=== PATIENT | female | born 1965 | race Hispanic/Latino ===

== ENCOUNTER → 2021-04-11 | Outpatient (CLI) | payer BC ==
[~2021-04-11] MED LIST: IOHEXOL 350 MG/ML 100ML INFUS..BTL IV ONE
== END | disposition home or self-care (01) ==
LOC: RAH 07:46
PROVIDERS: ATTEND Student in an Organized Health Care Education/Training Program
DX: L94.0 Localized scleroderma [morphea] (principal)
CPT/HCPCS: 71275; 73206 ×2; Q9967; 73202

== ENCOUNTER → 2022-11-04 | Outpatient (CLI) | payer BC ==
[~2022-11-04] MED LIST changes: +ALLO100T PO; +CHOL3000 PO; +CYAN100099 PO; +GABA300C PO; -IOHEXOL 350 MG/ML 100ML INFUS..BTL IV ONE; +LOSA25TA2 PO; +PANT40TA PO; +WARF7.5T49 PO
== END | disposition home or self-care (01) ==
LOC: SHCH 14:13
PROVIDERS: ATTEND Internal Medicine Cardiovascular Disease
DX: I87.2 Venous insufficiency (chronic) (peripheral) (principal); I82.532 Chronic embolism and thrombosis of left popliteal vein
CPT/HCPCS: 93970

== ENCOUNTER → 2023-03-18 | Outpatient (CLI) | payer BC ==
[~2023-03-18] MED LIST changes: +LOSA-417 PO; -LOSA25TA2 PO
== END | disposition home or self-care (01) ==
LOC: SHCH 07:30
PROVIDERS: ATTEND Internal Medicine Cardiovascular Disease
DX: I73.9 Peripheral vascular disease, unspecified (principal)
CPT/HCPCS: 93925

== ENCOUNTER → 2023-03-25 | Outpatient (CLI) | payer BC ==
[2023-03-25 16:37] LABS: CREATININE 0.8 mg/dL (0.5-1.5); POTASSIUM 4.3 mmol/L (3.5-5.1)
== END | disposition home or self-care (01) ==
LOC: LAB 11:50
PROVIDERS: ATTEND Student in an Organized Health Care Education/Training Program
DX: R10.84 Generalized abdominal pain (principal)
CPT/HCPCS: 36415; 80048

== ENCOUNTER → 2023-04-01 | Outpatient (CLI) | payer BC ==
[~2023-04-01] MED LIST changes: +IOHEXOL 350 MG/ML 100ML INFUS..BTL IV ONE
== END | disposition home or self-care (01) ==
LOC: RAH 08:00
PROVIDERS: ATTEND Student in an Organized Health Care Education/Training Program
DX: K57.90 Diverticulosis of intestine, part unspecified, without perforation or abscess without bleeding (principal); R10.84 Generalized abdominal pain; M47.815 Spondylosis without myelopathy or radiculopathy, thoracolumbar region; I70.90 Unspecified atherosclerosis
CPT/HCPCS: 74178; Q9967

== ENCOUNTER → 2023-06-16 | Outpatient (CLI) | payer BC ==
[~2023-06-16] MED LIST changes: -IOHEXOL 350 MG/ML 100ML INFUS..BTL IV ONE
== END | disposition home or self-care (01) ==
LOC: SHCH 09:54
PROVIDERS: ATTEND Internal Medicine Cardiovascular Disease
DX: I67.82 Cerebral ischemia (principal); G45.0 Vertebro-basilar artery syndrome
CPT/HCPCS: 93880

== ENCOUNTER → 2023-07-10 | Outpatient (CLI) | payer BC, SELFPAY ==
[~2023-07-10] MED LIST changes: +GADOTERATE MEGLUMINE 10 MMOL/20 ML VIAL IV ONE
== END | disposition home or self-care (01) ==
LOC: RAH 07:25
PROVIDERS: ATTEND Student in an Organized Health Care Education/Training Program
DX: M47.814 Spondylosis without myelopathy or radiculopathy, thoracic region (principal); N39.498 Other specified urinary incontinence; M47.816 Spondylosis without myelopathy or radiculopathy, lumbar region; M48.061 Spinal stenosis, lumbar region without neurogenic claudication; M79.89 Other specified soft tissue disorders; M54.9 Dorsalgia, unspecified
CPT/HCPCS: 72158; 72157; A9575

== ENCOUNTER → 2023-07-13 | Outpatient (CLI) | payer SELFPAY | END | disposition home or self-care (01) | LOC: RAH 10:28 | PROVIDERS: ATTEND Student in an Organized Health Care Education/Training Program | DX: M50.322 Other cervical disc degeneration at C5-C6 level (principal); N39.498 Other specified urinary incontinence; M54.9 Dorsalgia, unspecified; M50.222 Other cervical disc displacement at C5-C6 level | CPT/HCPCS: 72156; A9575 ==

== ENCOUNTER → 2024-07-21 | Outpatient (CLI) | payer BC ==
[~2024-07-21] MED LIST changes: -GADOTERATE MEGLUMINE 10 MMOL/20 ML VIAL IV ONE
--- NOTE | 2024-07-24 16:11 | HMCSR ---
APPROVED REPORT Left Lower Extremity Venous Study for DVT., Venous Competence. Indications DVT of Lower Extremity: Left Vein Imaging CFV (L): Normal flow, augmentation and compression. No evidence of DVT. 12.0mm 761ms of reflux. SFJ (L): Normal flow, augmentation and compression. No evidence of DVT. FEM (L): Normal flow, augmentation and compression. No evidence of DVT. POP (L): Partially Compressible, Recanalized flow. DFV (L): Normal flow, augmentation and compression. No evidence of DVT. PTV (L): Normal flow, augmentation and compression. No evidence of DVT. Peroneals (L): Normal flow, augmentation and compression. No evidence of DVT. Technologist Impression Left popliteal vein demonstrates partial compression with recanalized flow, suggestive of chroinic DV T. All other deep veins appear patent and compressible without thrombus. LGSV junction 5.0mm 1178ms thigh 3.5mm 294ms knee 2.8mm 0.0ms calf 2.4mm 0.0ms LSSV prox 2.9mm 0.0ms mid 2.0mm 0.0ms Conclusion Left popliteal vein demonstrates partial compression with recanalized flow, suggestive of chroinic DV T. All other deep veins appear patent and compressible without thrombus. Conclusion Left popliteal vein demonstrates partial compression with recanalized flow, suggestive of chroinic DV T. All other deep veins appear patent and compressible without thrombus.
== END | disposition home or self-care (01) ==
LOC: SHCH 09:25
PROVIDERS: ATTEND Student in an Organized Health Care Education/Training Program
DX: I82.402 Acute embolism and thrombosis of unspecified deep veins of left lower extremity (principal)
CPT/HCPCS: 93971

== ENCOUNTER → 2025-03-13 | Outpatient (CLI) | payer BC ==
[~2025-03-13] MED LIST changes: +CYAN-37 PO; -CYAN100099 PO
--- NOTE | 2025-03-13 23:20 | HMCIMG ---
EXAM: US Abdomen Limited, Right Upper Quadrant. CLINICAL HISTORY: Hepatomegaly. TECHNIQUE: Multiple sonographic images of the right upper quadrant of the abdomen were assessed for pa scale appearance and color doppler flow. COMPARISON: None provided. FINDINGS: LIVER: The liver is increased in echotexture and measures 16.3 cm. There is no evidence of dilated intrahepatic ducts. The hepatic and portal veins demonstrate normal directional flow. These findings are consistent with mild hepatomegaly and fatty liver. GALLBLADDER: Post cholecystectomy status. COMMON BILE DUCT: The common hepatic duct measures 4 mm in diameter (< 6mm is normal). PANCREAS: The pancreas is normal in appearance. RIGHT KIDNEY: The visualized right kidney is normal in echo texture without hydronephrosis- 10.8 x 5 x 5 cm. IMPRESSION: 1. Mild hepatomegaly with fatty liver 2. Several stable chronic and incidental findings are noted, as detailed in the body of the report. /Karla
== END | disposition home or self-care (01) ==
LOC: RAH 08:44
PROVIDERS: ATTEND Student in an Organized Health Care Education/Training Program
DX: K76.0 Fatty (change of) liver, not elsewhere classified (principal); R16.0 Hepatomegaly, not elsewhere classified; Z90.49 Acquired absence of other specified parts of digestive tract
CPT/HCPCS: 76705